=== PATIENT | male | born 1975 | race Caucasian/White ===

== ENCOUNTER 2020-05-16 07:33 | Outpatient (CLI) | payer OTHER, SELFPAY ==
--- NOTE | ~2020-05-16 | US_ITS ---
EXAMINATION: US right upper quadrant EXAM DATE: 05/16/2020 08:02 INDICATION: Elevated liver enzymes. TECHNIQUE: Multiple grayscale and Doppler images of the abdomen right upper quadrant were obtained (b y a technologist who performed the scan) and subsequently reviewed. There is no prior study for mark mcintyre. FINDINGS: The pancreatic head and body are normal in appearance. The pancreatic tail is not visualized. There is echogenic liver parenchyma, hepatic steatosis. There are no focal liver lesions identified. Th ere is no evidence of intrahepatic biliary duct dilation. Portal venous flow was seen in the hepatop edal, normal direction and has normal Doppler waveform. No right-sided hydronephrosis. Common bile duct measures 4 mm, which is normal. The gallbladder wall is normal in thickness, with ex pected amount of distention. No sonographic evidence of pericholecystic fluid. There is no cholelit hiases. Technologist performing exam reports patient did not demonstrate sonographic Choi's sign. Please note that this sign is less reliable in patients who have received pain medication. IMPRESSION: 1. Hepatic steatosis. Reviewed, dictated and finalized at location A. [employer] IMPRESSION: 1. Hepatic steatosis.
== END 2020-05-16 07:34 | disposition home or self-care (01) ==
LOC: CHSIMG 07:36
PROVIDERS: PCP Internal Medicine; Visit Provider Internal Medicine
DX: R94.5 Abnormal results of liver function studies (principal)
CPT/HCPCS: 76705

== ENCOUNTER 2023-04-15 15:38 | Outpatient (CLI) | payer OTHER, SELFPAY ==
[2023-04-15 15:55] LABS: Basophils Absolute Auto 0.05 K/mm3 (0.00-0.10); Basophils Percent Auto 0.5 % (0.0-1.0); Eosinophils Absolute Auto 0.13 K/mm3 (0.02-0.50); Eosinophils Percent Auto 1.3 % (1.0-6.0); Hematocrit 47.2 % (40.0-54.0); Hemoglobin 16.8 g/dL (14.0-18.0); Immature Granulocyte Absolute 0.03 K/mm3 (0.00-0.00); Immature Granulocyte Percent A 0.3 % (0.0-0.0); Lymphocytes Absolute Auto 2.25 K/mm3 (1.10-4.50); Lymphocytes Percent Auto 22.3 % (18.0-42.0); Mean Corpuscular HGB Conc 35.6 g/dL (32.0-36.0); Mean Corpuscular Hemoglobin 33.3 pg (27.0-31.0); Mean Corpuscular Volume 93.7 fL (78.0-102.0); Mean Platelet Volume 9.6 fl (8.7-11.0); Monocytes Absolute Auto 0.61 K/mm3 (0.10-0.90); Neutrophils Percent Auto 69.6 % (50.0-70.0); Platelet Count Result 325 K/mm3 (150-420); Red Blood Count 5.04 M/mm3 (4.70-6.10); Red Cell Distribution Width 11.9 % (11.6-14.4); White Blood Count 10.1 K/mm3 (4.8-10.8)
[2023-04-15 15:56] LABS: Appearance Urine Clear (Clear); Bilirubin Urine Negative (Negative); Blood Urine Trace-Intact (Negative); Color Urine Yellow (Yellow); Glucose Urine UA Negative (Negative); Ketones Urine Negative (Negative); Leukocyte Esterase Ur Negative (Negative); Nitrate Urine Negative (Negative); Protein Urine Trace (Negative)
[2023-04-15 16:04] LABS: Add Urine Microscopic? YES
[2023-04-15 16:05] LABS: Bacteria Urine None Seen /hpf; RBC Urine 0-2 /hpf (0-2); Squamous Epithelial Cell Urine Rare /hpf (Few); WBC Urine 0-3 /hpf (0-3)
[2023-04-15 16:20] LABS: Alanine Aminotransferase 34 U/L (16-63); Albumin Level 3.9 g/dL (3.4-5.0); Alkaline Phosphatase 84 U/L (46-116); Anion Gap 9 mmol/L (8-16); Aspartate Amino Transferase 21 U/L (15-37); Bilirubin,Total 0.7 mg/dL (0.00-1.00); Blood Urea Nitrogen 7 mg/dL (7-18); Carbon Dioxide 30 mmol/L (21-32); Chloride 104 mmol/L (98-108); Cholesterol 182 mg/dL (0-200); Estimated Glomerular Filt Rate > 60; Glucose 92 mg/dL (70-99); HDL Direct 41 mg/dL (40-60); LDL Cholesterol Calculated 117 mg/dL (<130); Osmolality Calculated 294 mOsm/kg (285-295); Potassium 4.1 mmol/L (3.5-5.1); Sodium 143 mmol/L (136-145); Thyroid Stimulating Hormone 1.41 uIU/mL (0.36-3.74); Triglycerides 118 mg/dL (0-150)
== END 2023-04-15 15:39 | disposition home or self-care (01) ==
LOC: CHSLAB 15:42
PROVIDERS: PCP Internal Medicine; Visit Provider Internal Medicine
DX: I10 Essential (primary) hypertension (principal); E78.5 Hyperlipidemia, unspecified
CPT/HCPCS: 36415; 80053; 80061; 81001; 84443; 85025

== ENCOUNTER 2024-02-17 15:00 | Outpatient (CLI) | payer BC, SELFPAY ==
[2024-02-17 15:20] LABS: Add Urine Microscopic? NO; Appearance Urine Clear (Clear); Bilirubin Urine Negative (Negative); Blood Urine Trace-intact (Negative); Color Urine Light Yellow (Yellow); Glucose Urine UA Negative (Negative); Hematocrit 42.2 % (40.0-54.0); Hemoglobin 15.3 g/dL (14.0-18.0); Ketones Urine Negative (Negative); Leukocyte Esterase Ur Negative (Negative); Mean Corpuscular HGB Conc 36.3 g/dL (32-36); Mean Corpuscular Hemoglobin 33.5 pg (27.0-31.0); Mean Corpuscular Volume 92.3 fL (78.0-102.0); Mean Platelet Volume 9.3 fl (8.7-11.0); Nitrate Urine Negative (Negative); Platelet Count Result 351 K/mm3 (150-420); Protein Urine Negative (Negative); Red Blood Count 4.57 M/mm3 (4.70-6.10); Specific Grav Ur 1.025 (1.010-1.020); Urobilinogen Urine 0.2 mg/dL (0.2-1.0); White Blood Count 9.3 K/mm3 (4.8-10.8); pH Urine 6.5 (5.0-8.0)
[2024-02-17 15:52] LABS: Alanine Aminotransferase 68 U/L (16-63); Alkaline Phosphatase 75 U/L (46-116); Anion Gap 6 mmol/L (4-12); Aspartate Amino Transferase 40 U/L (15-37); Bilirubin,Total 0.3 mg/dL (0.00-1.00); Blood Urea Nitrogen 9 mg/dL (7-18); Calcium 9.4 mg/dL (8.5-10.1); Carbon Dioxide 35 mmol/L (21-32); Chloride 100 mmol/L (98-108); Estimated Glomerular Filt Rate > 60; Glucose 100 mg/dL (70-99); Osmolality Calculated 290 mOsm/kg (285-295); Potassium 3.7 mmol/L (3.5-5.1); Sodium 141 mmol/L (136-145); Total Protein 7.2 g/dL (6.4-8.2)
== END 2024-02-17 15:01 | disposition home or self-care (01) ==
LOC: CHSLAB 15:06
PROVIDERS: PCP Internal Medicine; Visit Provider Internal Medicine
DX: I10 Essential (primary) hypertension (principal)
CPT/HCPCS: 36415; 80053; 81003; 84443; 85027